=== PATIENT | male | born 1970 | race Two or more races ===

== ENCOUNTER 2023-10-28 10:58 | Emergency (ER) | payer MEDICAID ==
[~2023-10-28] VITALS: Ht 160 cm; Wt 90.7 kg
[2023-10-28] MEDS ORDERED: HYDR28.316 TP (12:35)
[2023-10-28 12:48] VITALS: BP 149/89; O2SAT 99
== END 2023-10-28 12:48 | disposition home or self-care (01) ==
LOC: ER 10:58
DX: K62.5 Hemorrhage of anus and rectum (principal); Z79.52 Long term (current) use of systemic steroids; Z60.2 Problems related to living alone
CPT/HCPCS: A4606; A4663